=== PATIENT | female | born 1970 | race African-American/Black ===

== ENCOUNTER 2019-06-10 18:47 | Emergency (ER) | payer BC, OTHER ==
[~2019-06-10] VITALS: Ht 172.7 cm; Wt 99.8 kg
[~2019-06-10 18:47] MED LIST: BACTRIM DS TAB1 EACH PO; PANTOPRAZOLE SO40 MG PO; QUINAPRIL PO; TYLENOL WITH C1 EACH PO
--- OUTSIDE RECORDS SUMMARY | 2019-06-10 18:50 | XMS REPORT | Summary of Care ---
Author Author Brenda Frazier M.A. Unknown Address [facility] Phone Unavailable Care Team Providers Care Cloth Stretcher Name Role Phone RALPH SZYMANSKI M.D. 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 * Start : 17-Jul-2018 Active Promethazine HCl - 25 MG Oral Tablet ONE TAB EVERY 6 HOURS PRN NAUSEA * Quantity: 30 Refills: 0 RALHP SZYMANSKI M.D. * Start : 17-Sep-2018 Active Allergies and Adverse Reactions Name Dates Details tramadol (Allergy) Status: Active Past Medical History Name Dates Details History of back pain (V13.59, Z87.39) Status: Resolved History of hypertension (V12.59, Z86.79) Status: Resolved Procedures Procedure Dates Details History of section Completed History of Laparoscopic adjustable gastric banding Completed History of Appendectomy Completed Immunization Name Dates Details Immunizations not documented Family History Name Dates Details Family history of Drug or chemical induced diabetes mellitus with microalbuminuria, without long-term current use of insulin (249.40, E09.29) Status: Active Family history of diabetes mellitus (V18.0, Z83.3) Status: Active Family history of cardiac disorder (V17.49, Z82.49) Status: Active Family history of liver disease (V18.59, Z83.79) Status: Active Family history of hypertension (V17.49, Z82.49) Status: Active Family history of cerebrovascular accident (CVA) (V17.1, Z82.3) Status: Active Social History Name Dates Details Unknown if ever smoked Vital Signs Date Test Result Details No Known Vitals to report Results Date Description Value Details Results not documented Plan of Care Name Dates Details Planned Observations Planned Goals not documented Instructions Name Dates Details Instructions not documented Encounters Appointment; RALPH SZYMANSKI M.D. Encounter Diagnosis: Problem not documented On: 23-Jul-2018 10:15 Appointment; RALPH SZYMANSKI M.D. Encounter Diagnosis: Problem not documented On: 03-Sep-2018 10:15 Appointment; RALPH SZYMANSKI M.D. Encounter Diagnosis: Problem not documented On: 18-Sep-2018 9:00 Appointment; RALPH SZYMANSKI M.D. Encounter Diagnosis: Problem not documented On: 19-Sep-2018 11:30 Appointment; RALPH SZYMANSKI M.D. Encounter Diagnosis: Problem not documented On: 08-Oct-2018 12:30
[2019-06-10] MEDS ORDERED: SODIUM CHLORIDE 0.9% 500ML 500 ML IV STA (19:03)
[2019-06-10] MEDS ORDERED: MORPHINE SULFATE INJ 4 MG/ML INJ 1ML IV NR (19:15)
[2019-06-10] MEDS ORDERED: FAMOTIDINE 20 MG/2 ML VIAL IV NR (19:15)
[2019-06-10] MEDS ORDERED: ONDANSETRON HCL INJ 2MG/ML 2ML 2 MG/ML VIAL IV NR (19:15)
[2019-06-10] MEDS ORDERED: ENALAPRILAT IV INJ 1.25 MG/ML VIAL IV NR (19:15)
[2019-06-10 19:28] LABS: BASOPHILS % 0.2 % (0.0-1.0); EOSINOPHILS # (AUTO) 0.2 (0.0-0.4); EOSINOPHILS % 2.1 % (0.0-6.0); HEMOGLOBIN 11.8 g/dL (12.0-16.0); LYMPHOCYTES # (AUTO) 2.7 (1.0-3.2); MEAN CORPUSCULAR HEMOGLOBIN 30.2 pg (28-32); MEAN CORPUSCULAR HGB CONC 32.8 g/dL (31-35); MEAN CORPUSCULAR VOLUME 92.1 fL (81-99); MONOCYTES # (AUTO) 0.6 (0.2-0.8); MONOCYTES % 6.1 % (4.4-11.3); NEUTROPHILS # (AUTO) 6.3 (2.1-6.9); NEUTROPHILS % 64.2 % (38.7-80.0); PLATELET COUNT 257 x10e3/uL (140-360); RED BLOOD COUNT 3.91 x10e6/uL (3.6-5.1); RED CELL DISTRIBUTION WIDTH 15.3 % (11.7-14.4)
[2019-06-10 19:41] LABS: BILIRUBIN,URINE NEGATIVE (NEGATIVE); CLARITY,URINE SL CLOUDY (CLEAR); COLOR,URINE YELLOW (YELLOW); KETONES,URINE NEGATIVE (NEGATIVE); LEUKOCYTE ESTERASE ,URINE TRACE (NEGATIVE); NITRITE,URINE NEGATIVE (NEGATIVE); PROTEIN,URINE DIPSTICK NEGATIVE (NEGATIVE); URINE UROBILINOGEN 0.2 mg/dL (0.2 - 1)
[2019-06-10 19:48] LABS: ALANINE AMINOTRANSFERASE 13 IU/L (0-55); ALBUMIN 3.4 g/dL (3.5-5.0); ALBUMIN/GLOBULIN RATIO 0.9 (0.8-2.0); ALKALINE PHOSPHATASE 92 IU/L (40-150); AMYLASE 60 U/L (25-125); ANION GAP 16.7 mmol/L (8-16); BLOOD UREA NITROGEN 14 mg/dL (7-26); BUN/CREATININE RATIO 15 (6-25); CALCIUM 9.5 mg/dL (8.4-10.2); CARBON DIOXIDE 23 mmol/L (22-29); CHLORIDE 105 mmol/L (98-107); CREATINE KINASE 100 IU/L (29-168); CREATININE, SERUM 0.95 mg/dL (0.57-1.11); EST GLOMERULAR FILTRATION RATE > 60 ML/MIN (60-); GLUCOSE 106 mg/dL (74-118); LIPASE 39 U/L (8-78); POTASSIUM 3.7 mmol/L (3.5-5.1); SODIUM 141 mmol/L (136-145)
[2019-06-10 19:56] LABS: BACTERIA,URINE FEW /HPF; EPITHELIAL CELLS,URINE MODERATE /LPF; WBC,URINE (MAN) 0-5 /HPF (0-5)
--- NOTE | 2019-06-10 20:07 | Diagnostic Imaging Report ---
A single frontal view of the chest. HISTORY: Chest pain, look for CHF COMPARISON: None available. DISCUSSION: Portable technique, limits sensitivity of the exam. Tubes/Lines: None Lungs and pleura: The lungs are well inflated. No evidence of a consolidative pneumonia or pulmonary alveolar edema. No definite pleural effusion or pneumothorax is identified. Heart and mediastinum: The cardiomediastinal silhouette appears unremarkable. Bones and soft tissues: Appear unremarkable, given this limited exam. IMPRESSION: No acute radiographic abnormality. Signed by: Dr. Barry De Jesus D.O., M.M.M. on 06/10/2019 8:03 PM
[2019-06-10 22:01] VITALS: BP 163/87
== END 2019-06-10 22:04 | disposition home or self-care (01) ==
LOC: ER 18:47
DX: R07.89 Other chest pain (principal); I10 Essential (primary) hypertension; K52.9 Noninfective gastroenteritis and colitis, unspecified
CPT/HCPCS: 36415; 71045; 80053; 81001; 82150; 82550; 82553; 83690; 84484; 85025; 85379; 93005; 96374; 96375; 99284; J2270; J2405; J7040